=== PATIENT | female | born 1955 | race Caucasian/White ===

== ENCOUNTER → 2017-11-26 11:39 | Outpatient (CLI) | payer OTHER, SELFPAY ==
[2017-11-26 12:05] LABS: Add Manual Diff / Slide Review NO; Basophils Percent Auto 1.9 % (0-2); Eosinophils Percent Auto 1.8 % (2-4); Hematocrit 39.8 % (36-46); Hemoglobin 13.5 g/dL (12.0-16.0); Lymphocytes Percent Auto 30.7 % (25-40); Mean Corpuscular Hemoglobin 31.9 PG (26-34); Mean Corpuscular Volume 93.7 fL (80-100); Monocytes Percent Auto 8.9 % (3-14); Neutrophils Absolute Auto 2300 /uL (3000-5900); Neutrophils Percent Auto 56.7 % (50-75); Platelet Count 225 X10^3/uL (150-400); Red Blood Cell Count 4.25 X10^6/uL (4.0-5.2); Red Cell Distribution Width 12.6 % (11.6-14.8)
[2017-11-26 12:41] LABS: Alanine Aminotransferase 30 IU/L (9-52); Albumin Globulin Ratio 1.5 (1.0-2.8); Alkaline Phosphatase 39 U/L (38-126); Aspartate Aminotransferase 28 IU/L (14-36); BUN Creatinine Ratio 11.4 (6-22); Bilirubin Total 0.7 mg/dL (0.2-1.3); Blood Urea Nitrogen 8 mg/dL (7-17); Calcium 9.4 mg/dL (8.4-10.2); Carbon Dioxide 34 mmol/L (22-32); Chloride 99 mmol/L (98-107); Cholesterol 150 mg/dL (140-199); Estimated Glomerular Filt Rate > 60.0 mL/min (>60); Globulin 2.6 g/dL (1.7-4.1); Glucose 91 mg/dL (80-110); HDL Cholesterol 79 mg/dL (40-60); HEMOLYSIS < 15 (0-50); LDL Cholesterol Calculated 59 mg/dL (<100); Potassium 4.6 mmol/L (3.4-5.1); Sodium 140 mmol/L (137-145); Total Protein 6.6 g/dL (6.3-8.2); Triglycerides 60 mg/dL (35-150)
== END ==
PROVIDERS: Family Provider Physician Assistant; PCP Physician Assistant; Visit Provider Physician Assistant
DX: I10 Essential (primary) hypertension (principal); E78.5 Hyperlipidemia, unspecified
CPT/HCPCS: 36415; 80053; 80061; 85025

== ENCOUNTER → 2018-01-29 09:27 | Outpatient (CLI) | payer OTHER, SELFPAY ==
--- NOTE | 2018-01-29 | DI.MG.S_ITS ---
BILATERAL DIGITAL SCREENING MAMMOGRAM 3D/2D WITH CAD: 01/29/2018 CLINICAL: Routine screening. Comparison is made to exams dated: 12/24/2016 mammogram, 12/23/2015 mammogram, and 12/01/2014 mammogram - [facility]. The tissue of both breasts is heterogeneously dense. This may lower the sensitivity of mammography. Current study was also evaluated with a Computer Aided Detection (CAD) system. No significant masses, calcifications, or other findings are seen in either breast. There has been no significant interval change. IMPRESSION: NEGATIVE There is no mammographic evidence of malignancy. A 1 year screening mammogram is recommended. This exam was interpreted at Station ID: [id number]. NOTE: For mammograms, a report in lay terms will be sent to the patient. Approximately 15% of breast malignancies will not be visualized mammographically. In the management of a palpable breast mass, a negative mammogram must not discourage biopsy of a clinically suspicious lesion. Electronically Signed By: Siddharth das/windy:01/29/2018 10:17:58 letter sent: Normal Exam ACR BI-RADS Category 1: Negative 3341F
== END ==
PROVIDERS: Family Provider Physician Assistant; PCP Physician Assistant; Visit Provider Physician Assistant
DX: Z12.31 Encounter for screening mammogram for malignant neoplasm of breast (principal)
CPT/HCPCS: 77063; 77067

== ENCOUNTER 2018-02-17 09:12 | Emergency (ER) | payer OTHER, SELFPAY ==
[2018-02-17] VITALS (7 sets, daily range): BP systolic 124–159; BP diastolic 63–81; PULSE 66–80; RESP 12–26; TEMP 36.7; O2SAT 100
--- NOTE | 2018-02-17 09:26 | ED_ITS ---
HPI - Chest Pain General Chief Complaint: Chest Pain Stated Complaint: JAW PAIN,CHEST PAIN AND BACK PAIN Time Seen by Provider: 02/17/18 09:21 Source: patient Mode of arrival: ambulatory Limitations: no limitations History of Present Illness HPI narrative: patient is a 62-year-old female here for evaluation of left- sided chest pressure nausea vomiting left back pain. Patient states that she has not been feeling well over the past couple days. Has had off and on left- sided chest pressure. States that last night she was not feeling well. Was uncomfortable while she was sleeping. Woke up this morning at approximately 0430 and shortly afterwards had the development of left-sided chest pressure not worse with palpation or movement or deep breaths. She states that it does radiate to her left upper back. No shortness of breath. Has had retching and nausea and vomiting since the onset of her symptoms this morning. Related Data Home Medications Medication Instructions Recorded Confirmed acetaminophen [Tylenol] 1 tab PO PRN PRN 02/17/18 02/17/18 antiox.mv no.[id number] 1 cap PO DAILY 02/17/18 02/17/18 [I-Caps] atorvastatin 10 mg PO QPM 02/17/18 02/17/18 estradiol 0.5 mg PO QPM 02/17/18 02/17/18 metoprolol succinate 50 mg PO QPM 02/17/18 02/17/18 multivitamin 1 tab PO DAILY 02/17/18 02/17/18 Allergies Allergy/AdvReac Type Severity Reaction Status Date / Time No Known Drug Allergies Allergy Verified 02/17/18 09:23 Review of Systems Constitutional Denies fatigue, Denies fever(s) and Denies headache(s) ENT Ears, Nose, Mouth, and Throat: Denies headache(s) Cardiovascular Reports chest pain, Denies syncope, Denies rapid heart rate, Denies pedal edema , Denies edema, Denies irregular heart rhythm, Denies leg ulcers, Denies leg edema, Denies lightheadedness, Denies palpitations, Denies dyspnea and Denies orthopnea Respiratory Denies cough, Denies dyspnea and Denies wheezing Gastrointestinal Gastrointestinal: Denies abdominal pain, Denies cramping, Reports nausea and Reports vomiting Musculoskeletal Denies myalgias and Denies arthralgias Integumentary/Breasts Denies lesions and Denies rash Neurologic Denies syncope and Denies headache(s) Endocrine Denies fatigue and Denies palpitations Hematologic/Lymphatic Denies easy bleeding and Denies easy bruising Allergic/Immunologic Denies wheezing PFSH Medical History HTN (hypertension) (Acute) High cholesterol (Acute) Surgical History No pertinent past surgical history (Acute) Social History Smoking Status: Never smoker Exam Initial Vital Signs Initial Vital Signs: Vital Signs Temperature 98.1 F 02/17/18 09:19 Pulse Rate 76 02/17/18 09:19 Respiratory Rate 17 02/17/18 09:19 Blood Pressure 159/81 H 02/17/18 09:19 Pulse Oximetry 100 02/17/18 09:19 Const General: cooperative, healthy appearing, No comfortable ( Uncomfortable.), well developed, well groomed and No acute distress Orientation: alert, awake and oriented x3 HENMT Head: normal to inspection and normocephalic Resp Effort & Inspection: normal respiratory effort, not labored, no retractions and not tachypneic Auscultation: clear to auscultation bilaterally Cardio Rate: regular rate Rhythm: regular rhythm Heart Sounds: no murmurs Pulses: radial pulses present GI Inspection: non-distended Palpation: soft, No firm and No tender Skin Lesions: no lesions Rashes: no rashes Neuro General: alert, awake and oriented x3 Cognition: normal cognition Gait: normal gait Motor: muscle tone normal throughout Sensory Exam: no sensory deficits noted Extrem General: normal to inspection, capillary refill normal and No edema Psych Appearance: grossly normal and well kempt Course Orders Ordered: ED Orders 02/17/18 09:20 B Type Natriuretic Peptide Stat Complete Blood Count AUTO DIFF Stat Comprehensive Metabolic Panel Stat Lipase Stat Partial Thromboplastin Time Stat Prothrombin Time INR Stat Troponin I Stat 02/17/18 09:26 CT angio chest PE protocol Stat 02/17/18 11:01 EKG-12 Lead Stat 02/17/18 12:12 Troponin I Stat Sodium Chloride (Normal Saline 0.9%) 1,000 mls @ 150 mls/hr IV CONT ROZ Last Admin: 02/17/18 11:01 Dose: 150 mls/hr Discontinued Medications Aspirin (Aspirin Chew) 324 mg PO NOW ONE Stop: 02/17/18 10:41 Last Admin: 02/17/18 10:49 Dose: 324 mg Sodium Chloride (Normal Saline 0.9%) 1,000 mls @ 1,000 mls/hr IV BOLUS ONE Stop: 02/17/18 10:25 Last Infusion: 02/17/18 11:26 Dose: 0 mls/hr Admin: 02/17/18 09:34 Dose: 1,000 mls/hr Metoclopramide HCl (Reglan) 10 mg IV NOW ONE Stop: 02/17/18 10:53 Last Admin: 02/17/18 11:01 Dose: 10 mg Morphine Sulfate (Morphine) 4 mg IV NOW ONE Stop: 02/17/18 12:23 Nitroglycerin (Nitrostat) 0.4 mg SL [id number] PRN PRN Reason: Chest Pain Last Admin: 02/17/18 11:01 Dose: 0.4 mg Admin: 02/17/18 10:55 Dose: 0.4 mg Admin: 02/17/18 10:49 Dose: 0.4 mg Ondansetron HCl (Zofran) 4 mg IV NOW ONE Stop: 02/17/18 09:27 Last Admin: 02/17/18 09:34 Dose: 4 mg Ondansetron HCl (Zofran) 4 mg IV NOW ONE Stop: 02/17/18 09:43 Last Admin: 02/17/18 09:47 Dose: 4 mg Promethazine HCl (Phenergan) 25 mg PO NOW ONE Stop: 02/17/18 12:23 Vital Signs - 8 hr 02/17/18 09:19 02/17/18 10:09 02/17/18 10:49 Temperature 98.1 F Pulse Rate 76 66 70 Respiratory Rate 17 13 Blood Pressure 159/81 H 131/78 Blood Pressure [Left Arm] 145/77 H Pulse Oximetry 100 100 02/17/18 11:09 02/17/18 11:24 02/17/18 11:25 Temperature Pulse Rate 72 80 73 Respiratory Rate 26 H Blood Pressure 140/81 124/63 Blood Pressure [Left Arm] 140/81 Pulse Oximetry 100 MDM - Chest Pain Lab Data Attestation: I reviewed the patient's lab results. Result diagrams: 02/17/18 09:20 02/17/18 09:20 Lab Results 02/17/18 02/17/18 02/17/18 Range/Units 09:20 09:20 09:20 WBC 6.9 (4.5-11.0) X10^3/uL RBC 5.06 (4.0-5.2) X10^6/uL Hgb 15.9 (12.0-16.0) g/dL Hct 46.8 H (36-46) % MCV 92.6 (80-100) fL MCH 31.5 (26-34) PG MCHC 34.0 (30-36) % RDW 13.1 (11.6-14.8) % Plt Count 267 (150-400) X10^3/uL Neut % (Auto) 68.2 (50-75) % Lymph % (Auto) 23.8 L (25-40) % [place] % (Auto) 6.4 (3-14) % Eos % (Auto) 0.8 L (2-4) % Baso % (Auto) 0.8 (0-2) % Neut # (Auto) 4700 (0680-8877) /uL PT 11.8 (10.1-12.7) SECONDS INR 1.1 (0.9-1.3) APTT 34 (26.4-36.2) SECONDS Sodium Cancelled Potassium Cancelled Chloride Cancelled Carbon Dioxide Cancelled BUN Cancelled Creatinine Cancelled Estimated GFR Cancelled BUN/Creatinine Ratio Cancelled Glucose Cancelled Calcium Cancelled Total Bilirubin Cancelled AST Cancelled ALT Cancelled Alkaline Phosphatase Cancelled Troponin I (0.01-0.034) ng/mL B-Natriuretic Peptide < 100.0 (<100) Total Protein Cancelled Albumin Cancelled Globulin Cancelled Albumin/Globulin Ratio Cancelled Lipase Cancelled Specimen Hemolysis Cancelled 02/17/18 Range/Units 09:20 WBC (4.5-11.0) X10^3/uL RBC (4.0-5.2) X10^6/uL Hgb (12.0-16.0) g/dL Hct (36-46) % MCV (80-100) fL MCH (26-34) PG MCHC (30-36) % RDW (11.6-14.8) % Plt Count (150-400) X10^3/uL Neut % (Auto) (50-75) % Lymph % (Auto) (25-40) % [place] % (Auto) (3-14) % Eos % (Auto) (2-4) % Baso % (Auto) (0-2) % Neut # (Auto) (1254-7549) /uL PT (10.1-12.7) SECONDS INR (0.9-1.3) APTT (26.4-36.2) SECONDS Sodium 144 Potassium 4.0 Chloride 103 Carbon Dioxide 29 BUN 11 Creatinine 0.70 Estimated GFR > 60.0 BUN/Creatinine Ratio 15.7 Glucose 98 Calcium 9.8 Total Bilirubin 1.9 H AST 35 ALT 24 Alkaline Phosphatase 46 Troponin I < 0.012 (0.01-0.034) ng/mL B-Natriuretic Peptide (<100) Total Protein 7.8 Albumin 5.0 Globulin 2.8 Albumin/Globulin Ratio 1.8 Lipase 245 Specimen Hemolysis Imaging Data CT scan - chest: Radiologist's impression: [address] [address] [address] Scan Report Signed Patient: Denisse Chacko KMR#: [id number] : 5Acct:[id number] Age/Sex: 62 / FDate of Service: 02/17/18 Loc: ED Accession Number: [id number] Procedure: CT angio chest PE protocol Ordering Provider: Manpreet Kenyon D.O. PROCEDURE: CT ANGIO CHEST PE PROTOCOL INDICATIONS: shortness of breath TECHNIQUE: After the administration of intravenous contrast, 2 mm thick sections acquired from the pulmonary apices to the posterior costophrenic angles. 3-dimensional maximum intensity projection (MIP) coronal and sagittal reformats were then acquired through the thorax. For radiation dose reduction, the following was used: automated exposure control, adjustment of mA and/or kV according to patient size. COMPARISON: None. FINDINGS: Image quality: Excellent. Pulmonary arteries: Pulmonary arteries are normal in size, and demonstrate no intraluminal filling defects to suggest central pulmonary embolism. Lungs and pleura: Lungs are clear. Incidental note is made of an azygos lobe.No pleural effusions or pneumothorax. Central and peripheral airways are patent. Mediastinum: Heart size is normal, without pericardial effusion. No mediastinal or hilar adenopathy. Thoracic aorta is normal in caliber and enhancement. Esophagus is normal in caliber, without hiatal hernia. There is an apparent right subclavian artery seen that courses posterior to the esophagus, as on series 7 image 21. Bones and chest wall: No suspicious bony lesions. Mild pectus excavatum deformity can be seen. Age-appropriate bony degenerative changes are seen. Mild S. shaped scoliotic curvature is seen. Ribs and thoracic spine appear intact throughout. Thyroid gland demonstrates no significant CT abnormality. No axillary or supraclavicular adenopathy. Abdomen: Visualized upper abdominal solid organs appear normal in the early arterial phase of enhancement. IMPRESSION: Negative for pulmonary embolism. Incidental note is made of: Aberrant right subclavian artery Azygos lobe Mild pectus excavatum deformity S. shaped scoliotic curvature Dictated by: Solis Dumont M.D. on 02/17/2018 at 9:13 Approved by: Solis Dumont M.D. on 02/17/2018 at 9:16 ECG Data Attestation: I personally reviewed and interpreted this ECG as follows: Prior ECG tracings: not available for review Interpretation: EKG time 0918 hr sinus rhythm ventricular rate is 68 Normal axis normal QRS Normal QTC incomplete right bundle branch block nonspecific ST T wave changes EKG timed at 1106 hr Unchanged from prior EKG MDM Narrative Medical decision making narrative: patient with a negative troponin however this was less than 4 hr after the onset of her symptoms. CTA was negative for PE or thoracic aortic dissection. Patient was given an aspirin here in the ER. Has received a total of 8 mg of Zofran, 10 mg of Reglan, 25 mg p.o. Phenergan and morphine. Nitro did not change her symptoms. I feel given her history, the unexplained vomiting, the left-sided chest pressure that admitting to the hospital for provocative testing is warranted. I discussed the case with the [place] provider who discussed the case with Dr. Polk who accepts the patient in transfer at [facility]. I discussed the transfer and admission with the patient and her was at bedside. They expressed understanding and agreement with plan. Discharge Plan Departure Patient Disposition: [facility] Clinical Impression: Chest pain, Vomiting, Back pain Prescriptions: No Action multivitamin Tablet 1 tab PO DAILY RF: 0 acetaminophen [Tylenol] 325 mg Tablet 1 tab PO PRN PRN (Reason: Pain, Mild) RF: 0 atorvastatin 10 mg Tablet 10 mg PO QPM RF: 0 metoprolol succinate 50 mg Tablet Extended Release 24 Hr 50 mg PO QPM RF: 0 estradiol 0.5 mg Tablet 0.5 mg PO QPM RF: 0 antiox. [id number] [I-Caps] 280-10-2 mg Capsule 1 cap PO DAILY RF: 0
[2018-02-17] MEDS: SODIUM CHLORIDE 0.9% 1,000 ML 1000 ML IV (09:34)
[2018-02-17] MEDS: ONDANSETRON 4 MG/2 ML INJ IV ×2 (09:34→09:47)
[2018-02-17 09:37] LABS: Add Manual Diff / Slide Review NO; Basophils Percent Auto 0.8 % (0-2); Eosinophils Percent Auto 0.8 % (2-4); Hematocrit 46.8 % (36-46); Hemoglobin 15.9 g/dL (12.0-16.0); Lymphocytes Percent Auto 23.8 % (25-40); Mean Corpuscular Hemoglobin 31.5 PG (26-34); Mean Corpuscular Volume 92.6 fL (80-100); Monocytes Percent Auto 6.4 % (3-14); Neutrophils Absolute Auto 4700 /uL (3000-5900); Neutrophils Percent Auto 68.2 % (50-75); Platelet Count 267 X10^3/uL (150-400); Red Blood Cell Count 5.06 X10^6/uL (4.0-5.2); Red Cell Distribution Width 13.1 % (11.6-14.8); White Blood Cell Count 6.9 X10^3/uL (4.5-11.0)
[2018-02-17 09:38] LABS: INR 1.1 (0.9-1.3); Prothrombin Time 11.8 SECONDS (10.1-12.7)
[2018-02-17 09:41] LABS: PTT Partial Thromboplastin Tim 34 SECONDS (26.4-36.2)
[2018-02-17 09:42] LABS: Blood Urea Nitrogen 11 mg/dL (7-17); Carbon Dioxide 29 mmol/L (22-32); Chloride 103 mmol/L (98-107); Sodium 144 mmol/L (137-145)
[2018-02-17 09:43] LABS: Alanine Aminotransferase 24 IU/L (9-52); Albumin Globulin Ratio 1.8 (1.0-2.8); Alkaline Phosphatase 46 U/L (38-126); Aspartate Aminotransferase 35 IU/L (14-36); BUN Creatinine Ratio 15.7 (6-22); Bilirubin Total 1.9 mg/dL (0.2-1.3); Calcium 9.8 mg/dL (8.4-10.2); Estimated Glomerular Filt Rate > 60.0 mL/min (>60); Globulin 2.8 g/dL (1.7-4.1); Glucose 98 mg/dL (80-110); HEMOLYSIS 21 (0-50); Lipase 245 U/L (23-300); Total Protein 7.8 g/dL (6.3-8.2)
[2018-02-17 09:54] LABS: Troponin I < 0.012 ng/mL (0.01-0.034)
--- NOTE | 2018-02-17 10:10 | PC.NURSE ---
states n/v better. no vomiting
[2018-02-17 10:21] LABS: B Type Natriuretic Peptide < 100.0 (<100)
[2018-02-17] MEDS: NITROGLYCERIN 0.4 MG SL TAB SL ×3 (10:49→11:01)
[2018-02-17] MEDS: ASPIRIN 81 MG TAB 324 MG PO (10:49)
[2018-02-17] MEDS: METOCLOPRAMIDE 10 MG/2 ML INJ IV (11:01)
[2018-02-17] MEDS: SODIUM CHLORIDE 0.9% 1,000 ML 150 ML IV (11:01)
--- NOTE | 2018-02-17 11:10 | PC.NURSE ---
ntg x 3 given, no changes in pain epigastric 11/03, cont nausea/dry heaves again, md aware rx given. repeat ekg/ #2 ns hung. pt is alert. and verbal, so at side
[2018-02-17] MEDS: MORPHINE 4 MG/ML INJ IV (12:31)
[2018-02-17] MEDS: PROMETHAZINE 25 MG TABLET PO (12:59)
[2018-02-17 13:30] LABS: Troponin I < 0.012 ng/mL (0.01-0.034)
== END 2018-02-17 13:20 | disposition short-term general hospital (02) ==
PROVIDERS: Emergency Provider Emergency Medicine; Family Provider Physician Assistant; PCP Physician Assistant
DX: R07.89 Other chest pain (principal); M54.9 Dorsalgia, unspecified; R11.10 Vomiting, unspecified
CPT/HCPCS: 36415; 36591; 71275; 80053; 83690; 83880; 84484; 85025; 85610; 85730; 93005; 93041; 96361; 96374; 96375; 99284; 99285; J2270; J2405; J2765

== ENCOUNTER → 2019-02-16 10:44 | Outpatient (CLI) | payer OTHER, SELFPAY ==
--- NOTE | 2019-02-16 | DI.MG.S_ITS ---
BILATERAL DIGITAL SCREENING MAMMOGRAM 3D/2D WITH CAD: 02/16/2019 CLINICAL: Routine screening. Comparison is made to exams dated: 01/29/2018 mammogram, 12/24/2016 mammogram, 12/23/2015 mammogram, 12/01/2014 mammogram, and 03/23/2013 mammogram - [facility]. There are scattered fibroglandular elements in both breasts. Current study was also evaluated with a Computer Aided Detection (CAD) system. No significant masses, calcifications, or other findings are seen in either breast. There has been no significant interval change. IMPRESSION: NEGATIVE There is no mammographic evidence of malignancy. A 1 year screening mammogram is recommended. This exam was interpreted at Station ID: [id number]. NOTE: For mammograms, a report in lay terms will be sent to the patient. Approximately 15% of breast malignancies will not be visualized mammographically. In the management of a palpable breast mass, a negative mammogram must not discourage biopsy of a clinically suspicious lesion. Electronically Signed By: Yoshi moya/windy:02/16/2019 11:50:52 letter sent: Normal Exam ACR BI-RADS Category 1: Negative 3341F
== END ==
PROVIDERS: PCP Physician Assistant; Visit Provider Physician Assistant
DX: Z12.31 Encounter for screening mammogram for malignant neoplasm of breast (principal)
CPT/HCPCS: 77063; 77067

== ENCOUNTER → 2019-02-17 08:05 | Outpatient (CLI) | payer OTHER, SELFPAY ==
[2019-02-17 09:15] LABS: Add Manual Diff / Slide Review NO; Basophils Absolute Auto 100 /uL (0-100); Basophils Percent Auto 1.1 % (0-2); Eosinophils Absolute Auto 100 /uL (0-450); Eosinophils Percent Auto 1.7 % (2-4); Lymphocytes Absolute Auto 1700 /uL (1100-4500); Lymphocytes Percent Auto 29.9 % (25-40); Mean Corpuscular HGB Conc 33.3 % (30-36); Mean Corpuscular Hemoglobin 30.9 PG (26-34); Mean Corpuscular Volume 92.7 fL (80-100); Monocytes Absolute Auto 500 /uL (0-900); Monocytes Percent Auto 8.2 % (3-14); Neutrophils Absolute Auto 3300 /uL (1500-7000); Neutrophils Percent Auto 59.1 % (50-75); Platelet Count 257 X10^3/uL (150-400); Red Blood Cell Count 4.85 X10^6/uL (4.0-5.2); Red Cell Distribution Width 13.1 % (11.6-14.8); White Blood Cell Count 5.5 X10^3/uL (4.5-11.0)
[2019-02-17 09:34] LABS: Albumin 4.4 g/dL (3.5-5.0); Albumin Globulin Ratio 1.5 (1.0-2.8); Alkaline Phosphatase 50 U/L (38-126); Aspartate Aminotransferase 23 IU/L (14-36); BUN Creatinine Ratio 12.9 (6-22); Bilirubin Total 0.8 mg/dL (0.2-1.3); Blood Urea Nitrogen 9 mg/dL (7-17); Calcium 9.6 mg/dL (8.4-10.2); Carbon Dioxide 30 mmol/L (22-32); Chloride 100 mmol/L (98-107); Cholesterol 191 mg/dL (140-199); Estimated Glomerular Filt Rate > 60.0 mL/min (>60); Globulin 2.9 g/dL (1.7-4.1); Glucose 94 mg/dL (80-110); HDL Cholesterol 74 mg/dL (40-60); HEMOLYSIS < 15 (0-50); LDL Cholesterol Calculated 103 mg/dL (<100); Potassium 4.5 mmol/L (3.4-5.1); Sodium 137 mmol/L (137-145); Total Protein 7.3 g/dL (6.3-8.2); Triglycerides 71 mg/dL (35-150)
[2019-02-17 09:35] LABS: Alanine Aminotransferase < 6 IU/L (9-52)
== END ==
PROVIDERS: PCP Physician Assistant; Visit Provider Physician Assistant
DX: I10 Essential (primary) hypertension (principal); E78.5 Hyperlipidemia, unspecified
CPT/HCPCS: 36415; 80053; 80061; 85025

== ENCOUNTER → 2020-03-02 10:24 | Outpatient (CLI) | payer MEDICARE, OTHER, SELFPAY ==
--- NOTE | 2020-03-02 | DI.MG.S_ITS ---
BILATERAL DIGITAL SCREENING MAMMOGRAM 3D/2D WITH CAD: 03/02/2020 CLINICAL: Routine screening. Comparison is made to exams dated: 02/16/2019 mammogram, 01/29/2018 mammogram, and 12/24/2016 mammogram - [facility]. There are scattered fibroglandular elements in both breasts. Current study was also evaluated with a Computer Aided Detection (CAD) system. No significant masses, calcifications, or other findings are seen in either breast. There has been no significant interval change. IMPRESSION: NEGATIVE There is no mammographic evidence of malignancy. A 1 year screening mammogram is recommended. This exam was interpreted at Station ID: [id number]. NOTE: For mammograms, a report in lay terms will be sent to the patient. Approximately 15% of breast malignancies will not be visualized mammographically. In the management of a palpable breast mass, a negative mammogram must not discourage biopsy of a clinically suspicious lesion. Electronically Signed By: Elier Williamson M.D., jr/windy:03/02/2020 12:41:33 letter sent: Normal Exam ACR BI-RADS Category 1: Negative 3341F
== END ==
PROVIDERS: PCP Physician Assistant; Referring Provider Physician Assistant; Visit Provider Physician Assistant
DX: Z12.31 Encounter for screening mammogram for malignant neoplasm of breast (principal)
CPT/HCPCS: 77063; 77067

== ENCOUNTER → 2021-03-07 15:41 | Outpatient (CLI) | payer MEDICARE, OTHER, SELFPAY ==
--- NOTE | 2021-03-07 15:46 | DI.MG.S_ITS ---
BILATERAL DIGITAL SCREENING MAMMOGRAM 3D/2D WITH CAD: 03/07/2021 CLINICAL: Routine screening. Comparison is made to exams dated: 03/02/2020 mammogram, 02/16/2019 mammogram, and 01/29/2018 mammogram - [facility]. There are scattered fibroglandular elements in both breasts. Current study was also evaluated with a Computer Aided Detection (CAD) system. No significant masses, calcifications, or other findings are seen in either breast. There has been no significant interval change. IMPRESSION: NEGATIVE There is no mammographic evidence of malignancy. A 1 year screening mammogram is recommended. This exam was interpreted at Station ID: [id number]. NOTE: For mammograms, a report in lay terms will be sent to the patient. Approximately 15% of breast malignancies will not be visualized mammographically. In the management of a palpable breast mass, a negative mammogram must not discourage biopsy of a clinically suspicious lesion. Electronically Signed By: Simba Patino acr/windy:03/07/2021 17:20:11 letter sent: Normal Exam ACR BI-RADS Category 1: Negative 3341F
== END ==
PROVIDERS: PCP Physician Assistant; Referring Provider Physician Assistant; Visit Provider Physician Assistant
DX: Z12.31 Encounter for screening mammogram for malignant neoplasm of breast (principal)
CPT/HCPCS: 77063; 77067

== ENCOUNTER → 2021-08-20 14:26 | Outpatient (CLI) | payer MEDICARE, OTHER, SELFPAY ==
--- NOTE | 2021-08-20 14:28 | DI.MRI.S_ITS ---
PROCEDURE: MR LUMBAR SPINE WO CON INDICATIONS: Scoliosis, unspecified TECHNIQUE: Noncontrast sagittal T1 spin echo and T2 fast echo, sagittal STIR, and T2 fast spin echo through the lumbar spine. In cases with scoliosis, additional coronal T2 fast spin echo may be performed. COMPARISON: None. FINDINGS: Severe lumbar dextroscoliosis with right lateral listhesis of L3 and L2 with respect to the remaining lumbar spine curvature. There is also retrolisthesis of L3 with respect L4. This would be better assessed radiographically. The degree of scoliosis limits the utility of MRI as the spinal canal and neural foramina are obliquely imaged in every sequence. Normal position and appearance of the conus. Prevertebral and paraspinous soft tissues are within normal limits. T12-L1: No spinal canal stenosis. Moderate left and mild right neural foraminal stenosis. L1-L2: Mild spinal canal stenosis due to posterior disc osteophyte complex and bulky facet hypertrophy. Mild right and moderate left neural foraminal stenosis due to foraminal components of the disc bulge, posterior osteophytic ridging, and facet hypertrophy. L2-L3: Fusion of L2 and L3 which is likely degenerative. Posterior disc osteophyte complex flattens the ventral thecal sac. Mild bilateral neural foraminal stenosis. L3-L4: Moderate spinal canal stenosis due to posterior disc osteophyte complex and buckling of the ligamentum flavum along with facet hypertrophy. Severe right and mild left neural foraminal stenosis due to these factors as well as neural foraminal collapse due to scoliosis. L4-L5: Diffuse disc bulge flattens the ventral thecal sac. There is mild mass effect on the descending L5 nerve roots. Severe right and moderate left neural foraminal stenosis. L5-S1: Diffuse disc bulge flattens the ventral thecal sac without mass effect upon the traversing S1 nerve roots. Severe right and mild left neural foraminal stenosis. IMPRESSION: Severe lumbar dextroscoliosis with listhesis. Severe neural foraminal stenosis and up to moderate spinal canal stenosis in the lower lumbar spine. Dictated by: Elier Williamson M.D. on 08/22/2021 at 14:45 Approved by: Elier Williamson M.D. on 08/22/2021 at 14:49
== END ==
PROVIDERS: PCP Physician Assistant; Referring Provider Orthopaedic Surgery; Visit Provider Orthopaedic Surgery
DX: M41.86 Other forms of scoliosis, lumbar region; M48.061 Spinal stenosis, lumbar region without neurogenic claudication; M48.07 Spinal stenosis, lumbosacral region
CPT/HCPCS: 72148

== ENCOUNTER → 2022-01-23 08:39 | Outpatient (CLI) | payer MEDICARE, OTHER, SELFPAY ==
--- NOTE | 2022-01-23 08:59 | DI.MRI.S_ITS ---
PROCEDURE: MR CERVICAL SPINE WO CON INDICATIONS: Radiculopathy, cervical region TECHNIQUE: Noncontrast sagittal T1 spin echo and T2 fast spin echo, sagittal STIR, foraminal oblique sagittal T2 fast spin echo, and axial gradient echo or T2 fast spin echo through the cervical spine. COMPARISON: None. FINDINGS: Image quality: Excellent. Alignment and Curvature: There is normal bony alignment. Bone Marrow: Marrow demonstrates normal overall signal. Spinal Cord: As below. Slight increased signal in the cord at C5-6 reflects cord gliosis and/or edema. Paraspinous Soft Tissues: No paravertebral masses. Prevertebral soft tissues are normal in thickness. C2-C3: Normal appearance. C3-C4: Disc space is preserved. Small posterior osteophyte results in mild central and no foraminal stenosis C4-C5: Disc space narrowing with hypertrophic uncovertebral joints present. Mild central stenosis without cord deformation. No right and moderate left foraminal stenosis present. C5-C6: Disc space narrowing and large posterior disc osteophyte complex results in severe central stenosis, narrowing the AP diameter of the canal to 5.5 mm. Cord flattening and mild increased signal in the cord is noted. Hypertrophic uncovertebral joints results in moderate bilateral foraminal stenosis. C6-C7: Disc height is preserved. No central or foraminal stenosis C7-T1: Normal appearance. IMPRESSION: 1. Multilevel degenerative disc disease and arthropathy results in varying degrees of central and foraminal stenosis including severe central stenosis, cord flattening, and increased signal in the cord at C5-6 Approved by: Dannie Palacio M.D. on 01/23/2022 at 11:51
== END ==
PROVIDERS: PCP Physician Assistant; Referring Provider Physical Medicine & Rehabilitation; Visit Provider Physical Medicine & Rehabilitation
DX: M50.122 Cervical disc disorder at C5-C6 level with radiculopathy (principal); M47.22 Other spondylosis with radiculopathy, cervical region; M48.02 Spinal stenosis, cervical region; R06.02 Shortness of breath; U09.9 Post COVID-19 condition, unspecified
CPT/HCPCS: 71046; 72141

== ENCOUNTER → 2022-01-23 14:41 | Outpatient (CLI) | payer MEDICARE, OTHER, SELFPAY ==
--- NOTE | 2022-01-23 14:44 | DI.RAD.S_ITS ---
PROCEDURE: XR CHEST 2V INDICATIONS: Shorntess of breath after COVID TECHNIQUE: 2 views of the chest were acquired. COMPARISON: None. FINDINGS: Surgical changes and devices: None. Lungs and pleura: Linear scarring/atelectasis in bilateral mid to lower lung [place] are seen. No focal infiltrate. No pleural effusions or pneumothorax. Mediastinum: Mediastinal contours are normal. Heart size is normal. Bones and chest wall: No suspicious bony abnormalities. Soft tissues appear unremarkable. IMPRESSION: Linear scarring/atelectasis in bilateral mid to lower lung agu[place]. No focal infiltrate, pleural effusion or pneumothorax. Dictated by: Salas Ni M.D. on 01/23/2022 at 16:44 Approved by: Salas Ni M.D. on 01/23/2022 at 16:45
== END ==
PROVIDERS: PCP Physician Assistant; Referring Provider Physician Assistant; Visit Provider Physician Assistant
DX: R06.02 Shortness of breath; U09.9 Post COVID-19 condition, unspecified
CPT/HCPCS: 71046

== ENCOUNTER → 2022-03-09 14:44 | Outpatient (CLI) | payer MEDICARE, OTHER, SELFPAY ==
[2022-03-09 15:43] LABS: Add Manual Diff / Slide Review NO; Basophils Absolute Auto 0 /uL (0-100); Basophils Percent Auto 0.2 % (0-2); Eosinophils Absolute Auto 0 /uL (0-450); Eosinophils Percent Auto 0.1 % (2-4); Hematocrit 42.5 % (36-46); Hemoglobin 14.5 g/dL (12.0-16.0); Lymphocytes Absolute Auto 1100 /uL (1100-4500); Lymphocytes Percent Auto 13.2 % (25-40); Mean Corpuscular HGB Conc 34.1 % (30-36); Mean Corpuscular Hemoglobin 32.3 PG (26-34); Mean Corpuscular Volume 94.6 fL (80-100); Monocytes Absolute Auto 400 /uL (0-900); Monocytes Percent Auto 4.9 % (3-14); Neutrophils Absolute Auto 6700 /uL (1500-7000); Neutrophils Percent Auto 81.6 % (50-75); Platelet Count 241 X10^3/uL (150-400); Red Blood Cell Count 4.49 X10^6/uL (4.0-5.2); Red Cell Distribution Width 13.3 % (11.6-14.8); White Blood Cell Count 8.2 X10^3/uL (4.5-11.0)
[2022-03-09 16:11] LABS: BUN Creatinine Ratio 15.9 (6-22); Blood Urea Nitrogen 11 mg/dL (7-17); Calcium 9.1 mg/dL (8.4-10.2); Carbon Dioxide 28 mmol/L (22-32); Chloride 98 mmol/L (98-107); Estimated Glomerular Filt Rate > 60 mL/min (>60); Glucose 89 mg/dL (80-110); HEMOLYSIS < 15 (0-50); Sodium 135 mmol/L (137-145)
== END ==
PROVIDERS: PCP Physician Assistant; Referring Provider Orthopaedic Surgery Orthopaedic Surgery of the Spine; Visit Provider Orthopaedic Surgery Orthopaedic Surgery of the Spine
DX: Z01.818 Encounter for other preprocedural examination (principal); Z01.812 Encounter for preprocedural laboratory examination
CPT/HCPCS: 36415; 80048; 85025; 93005; 93010

== ENCOUNTER 2022-03-12 13:56 | Inpatient (IN) | payer MEDICARE, OTHER, SELFPAY ==
[2022-03-12] VITALS (21 sets, daily range): BP systolic 128–153; BP diastolic 72–93; PULSE 59–90; RESP 10–17; TEMP 36.2–37.6; O2SAT 86–98; BMI 29.8
[2022-03-12 14:38] LABS: COVID19 -Nasal RAPID Negative (Negative)
[2022-03-12] MEDS: LACTATED RINGERS 1,000 ML 42 ML IV (14:57)
--- NOTE | 2022-03-12 15:56 | PM.PREOP ---
Pre-operative Note COVID-19 COVID-19 status: Negative Result date/Date tested (Pos, Neg/Pending): 03/11/22 Criteria for continued procedure: Expected advancement of disease process, Possibility delay results in more complex future surgery or treatment, Increased loss of function, Continuing or worsening of significant or severe pain, Deterioration of the patient's condition or overall health and Delay expected to result in less-positive ultimate med/surg outcome Interval Note History & Physical reviewed/Exam performed by Physician: Yes Changes to H&P: No
[2022-03-12] MEDS: CEFAZOLIN 2 GM/100 ML PREMIX 100 ML IV (16:22)
--- NOTE | 2022-03-12 16:30 | P.OP_ITS ---
Operative Date/Time/Diagnoses Date of procedure: 03/12/22 Time of procedure: 16:40 Pre-op diagnosis: 1. C5-6 spinal stenosis 2. C5-6 spondylosis with myelopathy Post-op diagnosis: same Procedure & Clinicians Procedure: 1. C5-6 anterior cervical diskectomy and fusion 2. C5-6 anterior interbody cage placement 3. C5-6 anterior instrumentation with plate and screw placement in C5 and C6 vertebrae 4. Utilization of microsurgical technique and operating microscope Same procedure as scheduled: Yes Indications: Patient has been having chronic neck pain and worsening cervical radiculopathy. Patient failed multiple conservative management with worsening pain weakness and numbness in her upper extremity. Patient has been having difficulty performing activity of daily living. After discussing risks benefits of treatment options, patient elected proceed with surgery. Surgeon: Carlos Aviles Guest Services Coordinator: Malissa Hauser Click Yes if Unassisted: No Anesthesia Type: General Operative Notes Closure Type: primary Specimen(s): none sent Prosthetic devices, grafts, tissues, transplants, or devices: Globus extend plate, Titanium cage Estimated Blood Loss (mL): 5 Blood products transfused: none Procedure in detail: Patient was seen in the preoperative area. Risks and benefits of the surgery was discussed with the patient. Informed consent was obtained from the patient and placed in the chart. Surgical site was marked. Patient was taken to the operative room. General anesthesia was administered. Prophylactic antibiotic was given to the patient less than 30 min before the incision was made. Patient was placed into a supine position on a radiolucent table. Patient's shoulders were taped down to allow proper C-arm imaging. Anterior cervical area was prepped and draped in a sterile fashion. Time-out was performed at this time. Using lateral C-arm imaging, the level between C5 and C6 was identified and marked on patient's neck. A oblique incision from midline towards medial border of sternocleidomastoid muscle was made. The platysma muscle was incised in line with skin incision. Metzenbaum scissor was used to develop the plane between the medial border of sternocleidomastoid d and the strap muscles medially. The carotid sheath and its contents were identified and protected behind the hand- held retractor during the entire case. The plane between the carotid sheath and strap muscles was developed with Metzenbaum scissors. Dissection was made down to the level of the anterior cervical fascia. Longus colli muscle was incised on the anterior aspect of vertebral bodies bilaterally from C5-C6. Spinal needle was placed into the C5-6 disc space and confirmed with lateral C-arm imaging. Using microsurgical technique and operative microscope, anterior cervical diskectomy was performed at C5-6 level. This was done by removing the disc material, removing the anterior and posterior osteophytes posterior longitudinal ligaments along with performing bilateral foraminotomies at the C5-6 levels. Patient was found to have severe foraminal stenosis and central stenosis. Patient's stenosis was fully decompressed after decompression was completed. After the diskectomy was completed, an anterior interbody cage was obtained. The cage was packed with Globus DBM bone grafting material. One cage each along with the bone grafting material was then packed into the interbody space at C5-6 along with an anterior cervical plate. The cervical plate was stabilized to the C5-C6 vertebrae using screws. After confirming placement of the hardware with AP and lateral C-arm imaging, the screws were locked into the plate using the locking mechanism and torque limiting screwdriver. After the hardware was placed and confirmed with AP and lateral C-arm imaging, the wound was irrigated with sterile normal saline. The platysma muscle and the subcutaneous tissue was closed with 2-0 Vicryl. The skin was closed with 4-0 Monocryl and Steri-Strips. Patient tolerated the procedure well. Patient was transferred recovery room in stable condition. There were no complications. Complications: none Post-operative Condition: stable Disposition: PACU Plan for aftercare: Discharge to home
--- NOTE | 2022-03-12 16:50 | SUR.OPER ---
Supine, head on gel donut. Arms padded with gel pads, tucked at sides, towel roll under shoulders. Draw sheet folded over top of patient and secured with towel clamps. Cloth tape on bilateral shoulders pulled to ends of bed. Gel pad under bilateral heels. Safety belt at thigh. Legs uncrossed.
[2022-03-12] MEDS: BUPIVACAINE 0.25% (PF) 30 ML, EPINEPHrine 0.3 MG INJ (17:00)
--- NOTE | 2022-03-12 17:37 | DI.RAD.S_ITS ---
PROCEDURE: XR CERVICAL SPINE 2V OR 3V INDICATIONS: C5-6 ACDF TECHNIQUE: 2 nondiagnostic intraoperative fluoroscopic view(s) of the cervical spine were acquired. COMPARISON: None. FINDINGS: 2 nondiagnostic intraoperative fluoroscopic views of the cervical spine which are incomplete with visualization of C3, C4, C5, and C6 only. There are postsurgical changes of C5-C6 ACDF with interbody device. IMPRESSION: Two nondiagnostic intraoperative fluoroscopic views demonstrating the midcervical spine and postsurgical changes of C5-C6 ACDF with interbody device. No acute complicating hardware feature. Dictated by: Elier Williamson M.D. on 03/12/2022 at 17:56 Approved by: Elier Williamson M.D. on 03/12/2022 at 17:57
[2022-03-12] MEDS: HYDROMORPHONE 2 MG INJ IV ×2 (18:07→18:27)
[2022-03-12] MEDS: MEPERIDINE 50 MG/ML INJ 25 MG IV (18:45)
[2022-03-12] MEDS: OXYCODONE/ACETAMINOPHEN 5/325 TABLET 1 TAB PO (18:50)
--- NOTE | 2022-03-12 19:43 | SUR.PHASEI ---
Gave report to floor RN
[2022-03-12] MEDS: METOPROLOL ER 50 MG TABLET PO (22:25)
[2022-03-12] MEDS: OXYCODONE IR 5 MG TABLET PO (22:26)
[2022-03-12] MEDS: ATORVASTATIN 20 MG TABLET 10 MG PO (22:26)
[2022-03-12] MEDS: GABAPENTIN 300 MG CAPSULE 900 MG PO (22:27)
[2022-03-12] MEDS: ACETAMINOPHEN 325 MG TABLET 650 MG PO (23:23)
[2022-03-12] MEDS: HYDROMORPHONE 0.5 MG INJ 0.2 MG IV (23:23)
[2022-03-13] MEDS: OXYCODONE IR 5 MG TABLET PO ×3 (02:49→10:56)
[2022-03-13 03:00] VITALS: BP 134/74; PULSE 72; RESP 16; TEMP 36.7; O2SAT 95
[2022-03-13] MEDS: ACETAMINOPHEN 325 MG TABLET 650 MG PO ×2 (04:56→08:15)
[2022-03-13 07:44] VITALS: BP 127/72; PULSE 88; RESP 18; TEMP 37; O2SAT 96
[2022-03-13 07:54] VITALS: BP 127/72; PULSE 88; RESP 18; TEMP 37; O2SAT 96
--- NOTE | 2022-03-13 07:58 | PM.PNPO.1 ---
Subjective Subjective Date Patient Seen: 03/13/22 Time Patient Seen: 07:58 Interval history: Pain was severe last night however mild this morning. No shortness of breath or chest pain. No difficulty swallowing. No fever or chills. Otherwise without complaints. Exam Vital Signs (past 8 hours): - 03/13/22 03:00 03/13/22 07:44 Temperature 98.0 F 98.6 F Pulse Rate 72 88 Respiratory Rate 16 18 Blood Pressure 134/74 127/72 Pulse Oximetry 95 96 Oxygen Flow Rate 0 0 Oxygen Delivery Method Room Air Oxygen Flow Rate 0 Narrative Exam Narrative: 66-year-old female resting comfortably in bed in no apparent distress. Soft collar is in place. Dressing Clean, dry, intact.. Motor functions intact bilateral upper extremities. Const General: cooperative and comfortable Orientation: alert Objective Labs Labs: Laboratory Results - last 24 hr 03/12/22 14:05 SARS-CoV-2 (PCR) Negative [facility] Medical History Chronic back pain COVID-19 virus infection (2021) Eczema Foot fracture GERD (gastroesophageal reflux disease) High cholesterol HTN (hypertension) Osteoarthritis Scoliosis SVT (supraventricular tachycardia) Surgical History History of ankle surgery History of carpal tunnel release (2007) History of hysterectomy History of total left hip replacement (06/2010) No pertinent past surgical history Social History household members: spouse Smoking Status: Never smoker alcohol intake: current Assessment & Plan Post-op Postoperative Procedures: Procedures Operation Date: 03/12/22 15:45 Actual Procedure Side Surgeon p C5-6 ACDF w. anterior instrumentation Carlos Aviles MD Postoperative day: 1 Postoperative status: doing well Postoperative status narrative: Patient progressing as expected status post C5-C6 anterior cervical diskectomy and fusion Postoperative plan narrative: Multimodal pain management Soft collar for comfort Mobilize with physical therapy, limit bending, twisting, lifting Disposition likely home this afternoon after physical therapy Quality VTE Deep Vein Thrombosis/Pulmonary Embolism Present on Admission: No
[2022-03-13] MEDS: MAG HYDROX/ALUM/SIMETH 30 ML UDC PO (08:15)
[2022-03-13] MEDS: MAGNESIUM HYDROXIDE 30 ML UDC PO (08:15)
[2022-03-13] MEDS: SENNOSIDES 8.6 MG TABLET 17.2 MG PO (08:16)
[2022-03-13] MEDS: GABAPENTIN 300 MG CAPSULE 900 MG PO (08:16)
[2022-03-13] MEDS: MULTIVITAMIN 1 TABLET 1 TAB PO (08:17)
[2022-03-13] MEDS: ONDANSETRON 4 MG/2 ML INJ IV (08:19)
[2022-03-13] MEDS: hydrOXYzine pamoate 25 MG CAPSULE PO (08:19)
[2022-03-13] MEDS: SODIUM CHLORIDE 0.9% 1,000 ML 100 ML IV (08:21)
[2022-03-13] MEDS: DOCUSATE 100 MG CAPSULE PO (08:22)
[2022-03-13] MEDS: CEFAZOLIN 2 GM/100 ML PREMIX 100 ML IV (08:29)
--- NOTE | 2022-03-13 09:40 | PT.IIE ---
Current Diagnoses Other spondylosis with myelopathy, cervical region (03/12/22) Spinal stenosis, cervical region (03/12/22) Surgery Performed Operation Date: 03/12/22 15:45 Actual Procedures p C5-6 ACDF w. anterior instrumentation - Carlos Aviles MD Surgical History (Last Reviewed 03/13/22 @ 07:59 by Devin El PA-C) History of ankle surgery History of carpal tunnel release (2007) History of hysterectomy History of total left hip replacement (06/2010) No pertinent past surgical history Medical History (Last Reviewed 03/13/22 @ 07:59 by Devin El PA-C) Chronic back pain COVID-19 virus infection (2021) Eczema Foot fracture GERD (gastroesophageal reflux disease) High cholesterol HTN (hypertension) Osteoarthritis Scoliosis SVT (supraventricular tachycardia) Physical Therapy Inpatient Evaluation/Re-Eval M1 PT/OT-IP Prior Functional Status Start: 03/13/22 11:39 Freq: NEEDED Status: Active Protocol: Document 03/13/22 09:40 AB (Rec: 03/13/22 11:51 AB [id number]) Medical Review Prior Functional Status Medical History Reviewed Yes Communication able to make needs known Mobility and Gait pt stated that she is modified independent with all mobilities and ambulation without AD but has been using her FWW for the last 2 weeks due to UE/LE weakness Social History Household Members significant other Living Arrangements House Number of Floors (Floors) One Floor Number of Stairs To Enter/Railing? no steps to enter Home Environment Standard Height Toilet,Built- In Shower Seat Home Equipment Front Wheel Walker,Shower Seat with Backrest,Hand Held Shower,Grab Bars Near Toilet, Grab Bars In Shower Additional Social History Comment pt has an adjustable bed pt stated that her significant other and son will be able to assist her at home M2 PT-IP Current Condition Start: 03/13/22 11:39 Freq: NEEDED Status: Active Protocol: Document 03/13/22 09:40 AB (Rec: 03/13/22 11:51 AB [email or web address]) Physical Therapy Current Condition Current Condition Evaluation Date 03/13/22 Treatment Diagnosis s/p C5-6 ACDF; difficulty in walking Onset Date 03/12/22 M3 PT-IP Subjective Start: 03/13/22 11:39 Freq: NEEDED Status: Active Protocol: Document 03/13/22 09:40 AB (Rec: 03/13/22 11:51 AB [email or web address]) Subjective Physical Therapy Visit Type Type Initial Evaluation Visit Start Time 09:40 Visit Stop Time 10:12 Total Visit Minutes 32 Number of SLUNK SKINNER Visits 0 Physical Therapy Visit Comments Patient Comments agreeable to do PT Therapy Pain Assessment Pain When Pain Assessed At Rest Pain Present Pain Present Pain Reported Location Neck Intensity 7 Scale Used Numeric (0 - 10) Pain Management Techniques Distraction,Modification of Treatment,Re-positioning, Timing of Activity with Medications M4 PT-IP Mobility and Gait Start: 03/13/22 11:39 Freq: NEEDED Status: Active Protocol: Document 03/13/22 09:40 AB (Rec: 03/13/22 11:51 [email or web address]) PT-Bed Mobility Assessment Rolling Type of Rolling Log Rolling Level of Assist Standby Assistance Supine to Sit Supine to Sit Standby Assistance PT-Transfer Assessment Sit to and From Stand Sit to and from Stand Standby Assistance Equipment Transfer Assistive Device Gait Belt,Front Wheeled Walker Orthotic/Prosthetic Devices or Brace: Yes Transfers Transfer Destination Chair Transfer Technique ambulated Transfer Ability Level of Assist Standby Assistance Comments Mobility Comments educated pt on cervical precautions and log roll bed mobility. completed supine to sit log roll SBA. able to sit on EOB SBA. pt stated that RLE is shorter than L and wears shoes with a lift and requested to use her shoes. completed sit to stand SBA. ambulated towards the sink using FWW SBA. educated on soft collar management and pt completed donning/doffing collar. pt agreed to ambulate in the hallway and completed 125 ft using FWW SBA to occasionally CGA and cues to stay closer to FWW. pt requested to go back to bed. completed log roll sit to supine SBA. positioned pt on the bed. call light and table placed within reach. Gait Assessment Gait Gait Assistance Required: Standby Assistance Distance (Feet) 125 Able to Maintain Weight Bearing Status Yes During Gait Assistive Devices Assistive Device Gait Belt,Front Wheeled Walker Orthotic/Prosthetic Devices or Brace: No Gait Deviations General Gait Pattern Antalgic,Decreased Stride Length,Decreased Feet Clearance Factors Limiting Gait Function Factors Limiting Gait Function Decreased Activity Tolerance, Decreased Strength,Limited Range of Motion,Pain,Poor Balance,Poor Safety Awareness PT-Balance Assessment Sitting Balance and Reactions Static Sitting Balance Ability Normal Dynamic Sitting Balance Ability Normal Standing Balance and Reactions Static Standing Balance Ability Fair Dynamic Standing Balance Ability Fair Device Used FWW M5 PT-IP Objective Assessments Start: 03/13/22 11:39 Freq: NEEDED Status: Active Protocol: Document 03/13/22 09:40 AB (Rec: 03/13/22 11:51 AB [email or web address]) Orientation Orientation/Cognition Level of Alertness Alert Orientation Name,Place,Situation Language Function Ability No Deficits Noted Safety Awareness Understands Safety Issues Memory Description No Deficits Noted Gross Range of Motion Lower Extremity ROM Assessment Within Functional Limits Strength Lower Extremity Strength Hip 4-/5 Knee 4-/5 Coordination Assessment Gross Coordination Gross Coordination WNL Sensation Assessment Sensation Gross Sensation WNL Muscle Tone Muscle Tone WNL Yes M6 PT-IP Treatment Start: 03/13/22 11:39 Freq: NEEDED Status: Active Protocol: Document 03/13/22 09:40 AB (Rec: 03/13/22 11:51 AB [email or web address]) Physical Therapy Treatment Education Education Provided Precautions,Weight Bearing Status,Post-Op Packet,Safety M7 PT-IP Assessment and Plan Start: 03/13/22 11:39 Freq: NEEDED Status: Active Protocol: Document 03/13/22 09:40 AB (Rec: 03/13/22 11:51 AB [email or web address]) PT Summary Assessment and Plan Potential Rehabilitation Potential Good Status of Condition at Evaluation Stable Summary Impairments Pain,ROM,Strength,Balance, Coordination,Bed Mobility, Transfers,Gait,Activity Tolerance Assessment Summary pt requiring SBA with mobility with occasionally CGA during ambulation using fWW. pt plans to go home and has her significant other and son to assist her. pt may go home when medically stable. Goals Bed Mobility Goal Independent Transfer Goal Independent,Front Wheeled Walker Gait Goal Independent,Front Wheel Walker Gait Distance 200 Days to Meet Goals 3 Frequency of Treatment Frequency Of Treatment Twice a Day Treatment Plan Physical Therapy Treatment Plan Bed Mobility Training,Transfer Training,Gait Training, Therapeutic Exercise,Balance Retraining,Post Op Education, Discharge Planning,Hot or Cold Pack,Neuromuscular Re-ed, Coordination Retraining,Manual Therapy Precautions Cervical Spine Precautions Soft Collar for Comfort,No Heavy Lifting,Log Roll Recommendations To Nursing Amount of Assist Needed Standby Assistance Discharge Recommendations PT Discharge Recommendations Home with Assistance Transportation Needs at Discharge Private Vehicle
--- NOTE | 2022-03-13 10:56 | OT.IP.EVAL ---
Current Diagnoses Other spondylosis with myelopathy, cervical region (03/12/22) Spinal stenosis, cervical region (03/12/22) Surgery Performed Operation Date: 03/12/22 15:45 Actual Procedures p C5-6 ACDF w. anterior instrumentation - Carlos Aviles MD Past Medical History (Last Reviewed 03/13/22 @ 07:59 by Devin El PA-C) Chronic back pain COVID-19 virus infection (2021) Eczema Foot fracture GERD (gastroesophageal reflux disease) High cholesterol HTN (hypertension) Osteoarthritis Scoliosis SVT (supraventricular tachycardia) Surgical History (Last Reviewed 03/13/22 @ 07:59 by Devin El PA-C) History of ankle surgery History of carpal tunnel release (2007) History of hysterectomy History of total left hip replacement (06/2010) No pertinent past surgical history Occupational Therapy Inpatient Evaluation/Re-Eval M1 PT/OT-IP Prior Functional Status Start: 03/13/22 11:39 Freq: NEEDED Status: Discharge Protocol: Document 03/13/22 10:20 [facility] (Rec: 03/13/22 12:42 [facility] [id number]) Medical Review Prior Functional Status Medical History Reviewed Yes Communication able to make needs known Mobility and Gait pt stated that she is modified independent with all mobilities and ambulation without AD but has been using her FWW for the last 2 weeks due to UE/LE weakness and just recently using a wc to get around. Activities of Daily Living and IADL's Pt states has been having more difficulty to do her ADL and IADl needs. Social History Household Members significant other Living Arrangements House Number of Floors (Floors) One Floor Number of Stairs To Enter/Railing? no steps to enter Home Environment Standard Height Toilet,Built- In Shower Seat Home Equipment Front Wheel Walker,Shower Seat with Backrest,Hand Held Shower,Grab Bars Near Toilet, Grab Bars In Shower Additional Social History Comment pt has an adjustable bed pt stated that her significant other and son will be able to assist her at home Pt also has a rolling shower chair at home. M2 OT-IP Current Condition Start: 03/13/22 12:09 Freq: Status: Discharge Protocol: Document 03/13/22 10:20 [facility] (Rec: 03/13/22 12:42 [facility] [id number]) Occupational Therapy Current Condition Current Condition Evaluation Date 03/13/22 Treatment Diagnosis S/p C5-6 ACDF Diagnosis Onset Date 03/12/22 M3 OT- IP Subjective and Pain Start: 03/13/22 12:09 Freq: Status: Discharge Protocol: Document 03/13/22 10:20 [facility] (Rec: 03/13/22 12:42 [facility] [id number]) OT- Subjective Occupational Therapy Visit Type Type Initial Evaluation Visit Start Time 10:20 Visit Stop Time 10:56 Total Visit Minutes 36 Occupational Therapy Visit Comments Patient Comments Pt agreed to get up, do oral care, and get dressed. Pt's son present at the end of the session. Patient/Caregiver Goals To go home. OT Pain Assessment Pain When Pain Assessed During Mobility Pain Present Pain Present Pain Reported Location Neck Intensity 6 Scale Used Numeric (0 - 10) M4 OT- IP ADL's Start: 03/13/22 12:09 Freq: Status: Discharge Protocol: Document 03/13/22 10:20 [facility] (Rec: 03/13/22 12:42 [facility] [id number]) OT [id number] Comments OT Self-Feeding Comments Pt noted coughing on liquids and emphasized to sit upright and take smaller sips. OT ADL-Grooming General Evaluation Grooming Ability Contact Guard Assistance Areas Needing Assistance Retrieving/Set-up of Grooming Items Comments OT Grooming Comments While standing with her FWW. OT ADL-Oral Care General Eval Oral Care Ability Standby Assistance Comments Oral Care Comments VC to spit into a cup to best follow her back precautions. OT ADL-Dressing General Eval Upper Body Dressing Ability Standby Assistance Lower Body Dressing Ability Standby Assistance Comments OT Dressing Comments Pt able to get on her tights, shirt on her own after set-up while seated on the end of the bed. pt states her significant other will be able to assist with her compression socks and shoes. OT ADL-Toileting Comments OT Toileting Comments Pt not able to reach well and suggested she look into getting a bidet or toilet paper aid. OT ADL-Bathing Comments OT Bathing Comments Pt states to shower at home. M5 OT- IP IADL's Start: 03/13/22 12:09 Freq: Status: Discharge Protocol: Document 03/13/22 10:20 [facility] (Rec: 03/13/22 12:42 [facility] [id number]) OT-Instrumental Activities of Daily Living Home Safety Awareness Awareness of Need for Assistance at Home Good Awareness Ability to Problem Solve Emergency Able to Problem Solve Situations Home Safety Comments Pt's significant other to assist as needed. M6 OT- IP Functional Cognition Start: 03/13/22 12:09 Freq: Status: Discharge Protocol: Document 03/13/22 10:20 [facility] (Rec: 03/13/22 12:42 [facility] [id number]) Cognitive Factors Limiting Selfcare Function Cognitive Ability Level of Alertness Alert Patient Orientation Name,Place,Situation Attention Span Ability Capable of Focused Attention, Capable of Sustained Attention Ability to Follow Commands Able to Follow One Step Commands Safety Awareness Underestimates Need for Assistance Cognitive Comments Cognitive Assessment Comments Pt able to follow commands and needing cues to slow down and follow her cervical precautions especially for her bed mobility. Pt tends to pull up into long sitting and needing cues to follow log rolling instead. OT- Vision and Hearing OT- Hearing Assessment OT- Hearing Assessment WFL OT- Vision Assessment Visual Acuity Glasses All The Time Visual Attentiveness WFL Occular Pursuits WFL M7 OT- IP Mobility and Balance Start: 03/13/22 12:09 Freq: Status: Discharge Protocol: Document 03/13/22 10:20 [facility] (Rec: 03/13/22 12:42 [facility] [id number]) OT- Bed Mobility Assessment Supine to Sit Supine to Sit Assist Standby Assistance,Bedrails Sit to Supine Sit to Supine Assist Standby Assistance OT-Transfer Assessment Sit to and From Stand Sit to and from Stand Standby Assistance Transfers Transfer Ability Standby Assistance Technique Transfer Destination Bed Devices Transfer Assistive Devices Gait Belt,Front Wheeled Walker Comments Mobility Comments Noted pt tends to slightly lean to her right side as she tires. OT- Balance Assessment Sitting Balance and Reactions Static Sitting Balance Ability Normal Dynamic Sitting Balance Ability Good Standing Balance and Reactions Static Standing Balance Ability Fair Dynamic Standing Balance Ability Fair M8 OT- IP Objective Assessments Start: 03/13/22 12:09 Freq: Status: Discharge Protocol: Document 03/13/22 10:20 [facility] (Rec: 03/13/22 12:42 [facility] [id number]) OT-Muscle Tone Assessment Muscle Tone WNL Yes M9 OT- IP Assessment and Plan Start: 03/13/22 12:09 Freq: Status: Discharge Protocol: Document 03/13/22 10:20 [facility] (Rec: 03/13/22 12:42 [facility] [id number]) OT Summary Assessment and Plan Potential Rehabilitation Potential Good Analytic Complexity at Evaluation Low Summary OT Impairments Pain,Balance,Functional Mobility,Dressing,Toileting, Bathing,Shower Transfers, Activity Tolerance Progress Towards Goals Progressing Toward Goals Assessment Summary Pt low complexity and pt's home well set-up and has supportive son and significant other to assist with all her needs at home. Pt would benefit from a manager philosophy to use at home. Pt to go home when medically stable. Goals Grooming Goal Independent Dressing Goal Independent Toileting Goal Independent Bathing Goal Independent Toilet Transfer Goal Independent Shower Transfer Goal Independent Patient/Caregiver Education Goal Demonstrate Post-Op Precautions Days to Meet Goals 3 Frequency of Treatment Frequency Of Treatment Once a Day Treatment Plan OT Treatment Plan ADL Training,Functional Mobility,Patient/Family Education,Discharge Planning Other Treatment Recommendations and Next shower if still here Treatment Focus Discharge Recommendations OT Discharge Recommendations Home with Assistance Home Equipment Needs manager philosophy, bidet/toilet paper aid Transportation Needs at Discharge Private Vehicle
--- NOTE | 2022-03-13 10:56 | PM.DS.1 ---
History of Present Illness History of Present Illness Date Patient Seen: 03/13/22 Time Patient Seen: 10:56 Chief complaint: Neck pain Narrative: See progress note Discharge Providers Provider Date of admission: 03/12/22 13:56 Discharge Date: 03/13/22 Primary care physician: Tiana Mcmillan PA-C Consults: 03/12/22 20:31 Consult to Occupational Therapy Evaluate & Treat Comment: Physician Instructions: Evaluate and treat Consult to Physical Therapy Evaluate & Treat Comment: Physician Instructions: Evaluate and Treat 03/13/22 07:54 Consult to Occupational Therapy Evaluate & Treat Comment: Physician Instructions: Evaluate and treat Consult to Physical Therapy Evaluate & Treat Comment: Physician Instructions: Evaluate and Treat Discharge provider: Devin El PA-C Summary Hospital Course Discharge Diagnosis: 1. C5-6 spinal stenosis 2. C5-6 spondylosis with myelopathy Hospital Course: 1.? C5-6 anterior cervical diskectomy and fusion 2. C5-6 anterior interbody cage placement 3.? C5-6 anterior instrumentation with plate and screw placement in C5 and C6 vertebrae 4.? Utilization of microsurgical technique and operating microscope Same procedure as scheduled: Yes Indications: Patient has been having chronic neck pain and worsening cervical radiculopathy. Patient failed multiple conservative management with worsening pain weakness and numbness in her upper extremity.? Patient has been having difficulty performing activity of daily living.? After discussing risks benefits of treatment options, patient elected proceed with surgery. Surgeon: Carlos Aviles New Car Get Ready Mechanic: Malissa Hauser Click Yes if Unassisted: No Anesthesia Type: General Operative Notes Closure Type: primary Specimen(s): none sent Prosthetic devices, grafts, tissues, transplants, or devices: Globus extend plate, Titanium cage Estimated Blood Loss (mL): 5 Blood products transfused: none Patient admitted to the hospital for the above-mentioned procedure. Patient consented to the same. Patient underwent cervical fusion on March 12, 2022. Patient back in her room recovering well as in stable condition. Patient will be discharged home today in stable condition. Status at Discharge Cognitive/behavioral status at discharge: at baseline, oriented Functional status at discharge: independent ambulation Overall status at discharge: patient is progressing back to baseline Time Spent with Patient Time spent: Less than 30 minutes Exam Vital Signs (past 8 hours): - 03/13/22 03:00 03/13/22 07:44 Temperature 98.0 F 98.6 F Pulse Rate 72 88 Respiratory Rate 16 18 Blood Pressure 134/74 127/72 Pulse Oximetry 95 96 Oxygen Flow Rate 0 0 Oxygen Delivery Method Room Air Oxygen Flow Rate 0 Narrative Exam Narrative: See progress note Objective Labs Labs: Laboratory Results - last 24 hr 03/12/22 14:05 SARS-CoV-2 (PCR) Negative [facility] Medical History Chronic back pain COVID-19 virus infection (2021) Eczema Foot fracture GERD (gastroesophageal reflux disease) High cholesterol HTN (hypertension) Osteoarthritis Scoliosis SVT (supraventricular tachycardia) Surgical History History of ankle surgery History of carpal tunnel release (2007) History of hysterectomy History of total left hip replacement (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) No pertinent past surgical history Social History household members: spouse Smoking Status: Never smoker alcohol intake: current Discharge Assessment & Plan Assessment and Plan Assessment: Patient progressing as expected status post cervical fusion Plan of Treatment: Discharge home today in stable condition Discharge Plan Discharge Plan Patient Disposition: Home Discharge orders & Medications Prescriptions: New oxycodone 5 mg tablet 5 mg PO Q4H PRN (Reason: pain) Qty: 30 0RF acetaminophen 325 mg Tablet 650 mg PO Q6HR PRN (Reason: Pain, Mild (1-3)) Qty: 60 0RF oxycodone 5 mg Tablet 5 mg PO Q3HR PRN (Reason: Pain, Moderate (4-6)) Qty: 30 0RF Continued methylprednisolone 4 mg tablets,dose pack Label Comments: use as directed FOLLOW DIRECTIONS ON BACK OF FOIL PACK gabapentin 900 mg PO TID multivitamin Tablet 1 tab PO DAILY atorvastatin 10 mg Tablet 10 mg PO QPM metoprolol succinate 50 mg Tablet Extended Release 24 Hr 50 mg PO QPM estradiol 0.5 mg Tablet 0.5 mg PO QPM Follow up/Referrals: Tiana Mcmillan PA-C [Primary Care Provider] - Carlos Aviles MD [Physician] - As previously scheduled (Follow up with Dr Aviles on 03/28/2022 @ 3:00 pm at [facility] office in [place].) Diet/Activity/Treatments Diet: Diet as Tolerated Diet comment: Keep food mostly soft, moist consistency; advance as tolerated. Activity: No lifting more than 10 pounds. Wear cervical collar for comfort; recommend wearing while sitting upright or active; may have off to eat and shower. Some people do feel better sleeping with the collar on. Cold/Heat Therapy: Heating pad to back of neck/parascapular area as needed for pain. Skin/Wound/Dressing Care Dressing: May shower; remove dressing only if it becomes wet inside. Leave steri strips in place until follow up appointment. Visit Report/Discharge Packet Instructions: DI for Prescription Opioid Use, DI for Anterior Cervical Discectomy and Fusion Stand Alone Forms: Surgery Discharge Discharge Data Primary Care Provider: Tiana Mcmillan VTE Deep Vein Thrombosis/Pulmonary Embolism Present on Admission: No
== END 2022-03-13 12:00 | disposition home or self-care (01) | DRG 472 ==
PROVIDERS: Admitting Provider Orthopaedic Surgery Orthopaedic Surgery of the Spine; PCP Physician Assistant; Referring Provider Orthopaedic Surgery Orthopaedic Surgery of the Spine; Visit Provider Orthopaedic Surgery Orthopaedic Surgery of the Spine
PROC: 0RG10A0 Fusion of Cervical Vertebral Joint with Interbody Fusion Device, Anterior Approach, Anterior Column, Open Approach (ICD-10-PCS; principal; 2022-03-12 15:45)
DX: M48.02 Spinal stenosis, cervical region (principal); M47.12 Other spondylosis with myelopathy, cervical region; E78.5 Hyperlipidemia, unspecified; I10 Essential (primary) hypertension; Z20.822 Contact with and (suspected) exposure to COVID-19
CPT/HCPCS: 36415; 72040; 76000; 80048; 82962; 85025; 87635; 93005; 93010; 97161; 97165; 97535; C9803; C1713; J0171; J0330; J0690; J1100; J1170; J2175; J2250; J2405; J2704; J3010

== ENCOUNTER → 2022-04-11 09:52 | Outpatient (CLI) | payer MEDICARE, OTHER, SELFPAY ==
[2022-03-12 14:02] VITALS: BMI 29.8
--- NOTE | 2022-04-11 09:54 | DI.MG.S_ITS ---
BILATERAL DIGITAL SCREENING MAMMOGRAM 3D/2D WITH CAD: 04/11/2022 CLINICAL: Routine screening. Comparison is made to exams dated: 03/07/2021 mammogram, 03/02/2020 mammogram, and 02/16/2019 mammogram - [facility]. There are scattered areas of fibroglandular density in both breasts (category b / 25%-50% glandular tissue). Current study was also evaluated with a Computer Aided Detection (CAD) system. No significant masses, calcifications, or other findings are seen in either breast. There has been no significant interval change. IMPRESSION: NEGATIVE There is no mammographic evidence of malignancy. A 1 year screening mammogram is recommended. Based on the Tyrer Cuzick model (a risk assessment model) the patient's lifetime risk is 7.7% and her 10 year risk is 4.0%. According to the ACR, ACS, and NCCN guidelines, an annual breast MRI exam along with mammogram is recommended if the patient's lifetime risk is 20% or greater. This exam was interpreted at Station ID: [id number]. NOTE: For mammograms, a report in lay terms will be sent to the patient. Approximately 15% of breast malignancies will not be visualized mammographically. In the management of a palpable breast mass, a negative mammogram must not discourage biopsy of a clinically suspicious lesion. Electronically Signed By: Mariann [email or web address]:04/11/2022 12:10:33 letter sent: Normal Exam ACR BI-RADS Category 1: Negative 3341F
== END ==
PROVIDERS: PCP Physician Assistant; Referring Provider Physician Assistant; Visit Provider Physician Assistant
DX: Z12.31 Encounter for screening mammogram for malignant neoplasm of breast (principal)
CPT/HCPCS: 77063; 77067

== ENCOUNTER → 2022-11-23 08:00 | Outpatient (CLI) | payer MEDICARE, OTHER, SELFPAY ==
[2022-03-12 14:02] VITALS: BMI 29.8
--- NOTE | 2022-11-23 08:02 | DI.RAD.S_ITS ---
PROCEDURE: XR CHEST 2V INDICATIONS: Right posterior rib pain at inferiomedial corner of scapula TECHNIQUE: 2 views of the chest were acquired. COMPARISON: None. FINDINGS: Surgical changes and devices: ACDF. Lungs and pleura: Streaky opacity in the left mid lung. No pleural effusions or pneumothorax. Mediastinum: Mediastinal contours are normal. Heart size is normal. Bones and chest wall: No suspicious bony abnormalities. No obvious displaced rib fracture. Minimal irregularity of the right posterior 3rd rib. Soft tissues appear unremarkable. IMPRESSION: Minimal irregularity at the right posterior 3rd rib. In the setting of trauma this could represent nondisplaced fracture. This could also be the sequelae of remote fracture. Minimal streaky opacity in the left mid lung field. Suspect atelectasis. If clinically indicated CT chest could be considered for further evaluation. Dictated by: Yoshi Contreras M.D. on 11/23/2022 at 8:52 Approved by: Yoshi Contreras M.D. on 11/23/2022 at 8:55
== END ==
PROVIDERS: PCP Physician Assistant; Referring Provider Physician Assistant; Visit Provider Physician Assistant
DX: R07.81 Pleurodynia (principal)
CPT/HCPCS: 71046

== ENCOUNTER → 2023-04-22 07:47 | Outpatient (CLI) | payer MEDICARE, OTHER, SELFPAY ==
[2022-03-12 14:02] VITALS: BMI 29.8
--- NOTE | 2023-04-22 | DI.MG.S_ITS ---
BILATERAL DIGITAL SCREENING MAMMOGRAM 3D/2D WITH CAD: 04/22/2023 CLINICAL: Routine screening. Comparison is made to exams dated: 04/11/2022 mammogram, 03/07/2021 mammogram, and 03/02/2020 mammogram - [facility]. There are scattered areas of fibroglandular density in both breasts (category b / 25%-50% glandular tissue). Current study was also evaluated with a Computer Aided Detection (CAD) system. No significant masses, calcifications, or other findings are seen in either breast. There has been no significant interval change. IMPRESSION: NEGATIVE There is no mammographic evidence of malignancy. A 1 year screening mammogram is recommended. Based on the Tyrer Cuzick model (a risk assessment model) the patient's lifetime risk is 7.3% and her 10 year risk is 4.0%. According to the ACR, ACS, and NCCN guidelines, an annual breast MRI exam along with mammogram is recommended if the patient's lifetime risk is 20% or greater. This exam was interpreted at Station ID: [id number]. NOTE: For mammograms, a report in lay terms will be sent to the patient. Approximately 15% of breast malignancies will not be visualized mammographically. In the management of a palpable breast mass, a negative mammogram must not discourage biopsy of a clinically suspicious lesion. Electronically Signed By: Yovanny girard/windy:04/22/2023 09:08:16 letter sent: Normal Exam ACR BI-RADS Category 1: Negative 3341F
== END ==
PROVIDERS: PCP Physician Assistant; Referring Provider Physician Assistant; Visit Provider Physician Assistant
DX: Z12.31 Encounter for screening mammogram for malignant neoplasm of breast (principal)
CPT/HCPCS: 77063; 77067